=== PATIENT | male | born 1985 | race Two or more races ===

== ENCOUNTER 2017-07-03 07:48 | Emergency (ER) | payer BC, MEDICAID ==
[~2017-07-03] VITALS: Ht 180.3 cm; Wt 122.5 kg
[2017-07-03 10:35] VITALS: BP 125/83
== END 2017-07-03 11:10 | disposition home or self-care (01) ==
LOC: ER 07:48
DX: R20.0 Anesthesia of skin (principal)
CPT/HCPCS: 70450